=== PATIENT | male | born 1995 | race Caucasian/White ===

== ENCOUNTER 2017-06-05 12:55 | Emergency (ER) | payer OTHER ==
[~2017-06-05] VITALS: Ht 180.3 cm; Wt 67.1 kg
[2017-06-05 13:59] LABS: HEMATOCRIT 45.9 % (38.0-50.0); HEMOGLOBIN 16.3 G/DL (12.5-16.6); MCHC 35.5 G/DL (30.0-36.0); MCV 84.4 FL (86-99); PLATELET COUNT 184 K/uL (156-360); RBC DIS.WIDTH-CV 11.9 % (11.8-14.6); RBC DIS.WIDTH-SD 35.8 % (39-53); RED BLOOD COUNT 5.44 M/uL (4.00-5.50); WHITE BLOOD COUNT 7.5 K/uL (4.1-10.2)
[2017-06-05 14:12] LABS: CHLORIDE 106 mEq/L (99-109); POTASSIUM 3.9 mEq/L (3.7-5.4); SODIUM 138 mEq/L (136-147)
[2017-06-05 14:13] LABS: GLUCOSE 88 mg/dL (70-99)
[2017-06-05 14:17] LABS: CREATININE 0.9 mg/dL (0.6-1.3); GFR ESTIMATE (CALCULATED) > 59 mL/min/ (58.99-99999)
[2017-06-05 14:18] LABS: UREA NITROGEN (BUN) 22 mg/dL (9-23)
[2017-06-05 14:24] LABS: TROP-I INTERPRETATION NEGATIVE; TROPONIN-I < 0.01 ng/mL (0.0-0.30)
[2017-06-05] MEDS ORDERED: ATIVAN0.5 MG PO (19:21)
[2017-06-05] MEDS ORDERED: ATARAX,VISTARIL25 MG PO (19:21)
[2017-06-05 19:56] VITALS: BP 130/71
[2017-06-05 20:33] LABS: THYROTROPIN (TSH) 1.3 MIU/L (0.4-5.5)
== END 2017-06-05 19:56 | disposition home or self-care (01) ==
LOC: EME 12:55
DX: R00.2 Palpitations (principal); F41.9 Anxiety disorder, unspecified; J45.909 Unspecified asthma, uncomplicated; Z81.8 Family history of other mental and behavioral disorders
CPT/HCPCS: 71046; 80048; 84443; 84484; 85027; 93005; 99281; 99284